=== PATIENT | male | born 1990 | race Caucasian/White ===

== ENCOUNTER 2016-12-05 08:35 | Day surgery (SDC) | payer BC ==
[~2016-12-05 08:35] MED LIST: Lactated Ringers 1,000 ML IV SCH; Lidocaine 2% 5 ML SDV ONE; Midazolam 1 MG/ML 2 ML SDV ONE; Propofol 200 MG/20 ML SDV ONE; fentaNYL 100 MCG/2 ML SDV ONE
--- NOTE | 2016-12-05 09:09 | PCM.PREANE ---
Preanesthetic Assessment - Anesthesia/Transfusion/Family Hx Anesthesia History: Prior Anesthesia Without Reaction Family History of Anesthesia Reaction: No Transfusion History: No Prior Transfusion(s) Intubation History: Unknown - Review of Systems General: No Symptoms Pulmonary: No Symptoms Cardiovascular: No Symptoms Gastrointestinal: Abdominal Pain Neurological: No Symptoms Other: Reports: None - Physical Assessment Height: 1.8 m Weight: 71.668 kg ASA Class: 2 Mental Status: Alert & Oriented x3 Airway Class: Mallampati = 2 Dentition: Reports: Normal Dentition Thyro-Mental Finger Breadths: 3 Mouth Opening Finger Breadths: 3 ROM/Head Extension: Full Lungs: Clear to Auscultation, Normal Respiratory Effort Cardiovascular: Regular Rate, Regular Rhythm - Allergies Allergies/Adverse Reactions: Allergies Allergy/AdvReac Type Severity Reaction Status Date / Time codeine Allergy Cannot Verified 11/03/14 03:51 Remember bee stings Allergy Anaphylactic Uncoded 12/01/16 08:01 Shock - Blood Blood Available: No - Anesthesia Plan Pre-Op Medication Ordered: None - Acknowledgements Anesthesia Type Planned: MAC Pt an Appropriate Candidate for the Planned Anesthesia: Yes Alternatives and Risks of Anesthesia Discussed w Pt/Guardian: Yes Pt/Guardian Understands and Agrees with Anesthesia Plan: Yes PreAnesthesia Questionnaire - Past Health History Medical/Surgical History: Denies Medical/Surgical History HEENT History: Reports: Other (See Below) Other HEENT History: wears contacts Gastrointestinal History: Reports: GERD Musculoskeletal History: Reports: Fracture Other Musculoskeletal History: hx fx shoulder - Past Surgical History Head Surgeries/Procedures: Reports: None GI Surgical History: Reports: Appendectomy - SUBSTANCE USE Smoking Status *Q: Current Every Day Smoker (1-2 ppd) Tobacco Use Within Last Twelve Months: Cigarettes Days Per Week of Alcohol Use: 2 Number of Drinks Per Day: 3 Total Drinks Per Week: 6 Recreational Drug Use History: No - HOME MEDS Home Medications: Home Meds EPINEPHrine [Epipen] 1 injection SUBCUT ASDIRECTED 12/01/16 [History] Ranitidine HCl 150 mg PO BID 12/01/16 [History] - CURRENT (IN HOUSE) MEDS Current Meds: Current Medications Lactated Ringer's (Ringers, Lactated) 1,000 mls @ 125 mls/hr IV ASDIRECTED THA Last Admin: 12/05/16 09:06 Dose: 125 mls/hr Discontinued Medications Fentanyl (Sublimaze) Confirm Administered Dose 100 mcg .ROUTE .STK-MED ONE Stop: 12/05/16 07:34 Lidocaine (Xylocaine-Mpf 2%) Confirm Administered Dose 5 ml .ROUTE .STK-MED ONE Stop: 12/05/16 07:33 Midazolam HCl (Versed 1 Mg/Ml) Confirm Administered Dose 2 mg .ROUTE .STK-MED ONE Stop: 12/05/16 07:33 Propofol (Diprivan 20 Ml) Confirm Administered Dose 400 mg .ROUTE .STK-MED ONE Stop: 12/05/16 07:33
--- NOTE | 2016-12-05 10:11 | PCM.OPNOTE ---
- General Post-Op/Procedure Note Date of Surgery/Procedure: 12/05/16 Operative Procedure(s): egd w bx Findings: see dict [id number] Pre Op Diagnosis: gerd Post-Op Diagnosis: Same Anesthesia Technique: Moderate Sedation Primary Surgeon: Ned Manning Pathology: egd bx Complications: None Condition: Good
--- NOTE | 2016-12-05 11:29 | OR ---
SURGEON: Ned Manning MD DATE OF PROCEDURE: 12/05/2016 PREOPERATIVE DIAGNOSIS: Abdominal pain. POSTOPERATIVE DIAGNOSIS: Gastroesophageal reflux disease. PROCEDURE PERFORMED: Esophagogastroduodenoscopy with biopsy. DESCRIPTION OF PROCEDURE: EGD: The patient was taken to the endoscopy room, and with the FITNESS DIRECTOR, Diprivan was administered. A well-lubricated EGD scope was gently inserted through the oropharynx, down the esophagus, passing through the gastroesophageal junction, into the stomach. The mucosa was examined upon the passage. Any etiology will be noted. Once in the stomach, we continued to advance to the distal antrum, passed through the pylorus into the second portion of the duodenum. Again, the mucosa was examined for any abnormality and etiology. The scope was then retrieved back to the stomach and then retroflexed to look at the fundus of the stomach. If a biopsy was indicated, we will biopsy the antrum, body, and gastroesophageal junction. The air will be sucked out while the scope is retrieved to reduce the patient's discomfort. The patient tolerated the procedure well. There were no intraoperative complications. Dr. Manning was present through the whole procedure. Prior to surgery, a time-out had been called, the patient identified, procedure identified and antibiotic administered. FINDINGS: 1. The patient is easily sedated with FITNESS DIRECTOR and Diprivan. The patient is soundly snoring. 2. Oropharynx and proximal esophagus are free of disease and no inflammation, stricture, or ulceration. Distal esophagus at GE junction at 40 shows moderate to significant salmon color change, and flame-like inflammation consistent with GERD. Stomach rugae is normal in appearance. There is no blood, ulcer, bile, or food observed. Antrum was mildly inflamed. Duodenum was grossly normal. Scope retrieved back to the stomach and retroflexed to look at the fundus of stomach, there was no hiatal hernia. Biopsy was done at antrum, body, GE junction at 40, and sucked out the air while the scope pulling out. VJ / DEAN /[id number]
[2016-12-05 11:53] VITALS: BP 118/60
== END 2016-12-05 10:52 | disposition home or self-care (01) ==
LOC: MW.SDS 08:35
PROVIDERS: ATTEND Surgery
DX: K21.0 Gastro-esophageal reflux disease with esophagitis (principal); Z88.8 Allergy status to other drugs, medicaments and biological substances; Z91.030 Bee allergy status; Z79.899 Other long term (current) drug therapy; F17.210 Nicotine dependence, cigarettes, uncomplicated
CPT/HCPCS: 43239; J2250; J3010; J7120; 88305; 88312; J2704

== ENCOUNTER 2017-09-26 19:35 | Emergency (ER) | payer BC ==
[2017-09-26 20:00] VITALS: BP 133/86
[2017-09-26] MEDS ORDERED: Ketorolac 60 MG/2 ML SDV IM ONE (20:19)
--- NOTE | 2017-09-26 20:25 | EDM.PDOC ---
ED HPI GENERAL MEDICAL PROBLEM - General Chief Complaint: Upper Extremity Injury/Pain Stated Complaint: PAIN RT SHOULDER/LT KNEE Time Seen by Provider: 09/26/17 19:41 Source of Information: Reports: Patient History Limitations: Reports: No Limitations - History of Present Illness INITIAL COMMENTS - FREE TEXT/NARRATIVE: HISTORY AND PHYSICAL: History of present illness: Patient is a 27-year-old male who presents to the emergency room today with complaints of left knee pain and right shoulder pain. Earring a softball game he was running and slid into a base, felt like he hyperextended his left knee which resulted in him falling and rolling to the ground. Fall he hit his right shoulder and now has pain with range of motion. Denies any numbness, tingling or lack of sensation to his distal extremities. No previous injury or trauma of the affected extremities. Review of systems: As per history of present illness and below otherwise all systems reviewed and negative. Past medical history: As per history of present illness and as reviewed below otherwise noncontributory. Surgical history: As per history of present illness and as reviewed below otherwise noncontributory. Social history: No reported history of drug or alcohol abuse. Family history: As per history of present illness and as reviewed below otherwise noncontributory. Physical exam: General: Developed and well-nourished 27 her old male. Alert and oriented. Nontoxic appearing and in no acute distress. HEENT: Atraumatic, normocephalic, pupils equal and reactive bilaterally, negative for conjunctival pallor or scleral icterus, mucous membranes moist, throat clear, neck supple, nontender, trachea midline. No drooling or trismus noted. No meningeal signs Lungs: Clear to auscultation, breath sounds equal bilaterally, chest nontender. Heart: S1S2, regular rate and rhythm without overt murmur Abdomen: Soft, nondistended, nontender. Negative for masses or hepatosplenomegaly. Negative for costovertebral tenderness. Pelvis: Stable nontender. Genitourinary: Deferred. Rectal: Deferred. Skin: Superficial abrasion noted to left lateral knee. Otherwise skin is intact , warm, dry. No lesions or rashes noted. Extremities: Pain with palpation to the posterior knee. No knee instability noted. Limited range of motion due to pain of the right shoulder. Distal right clavicle tenderness with palpation. He is negative for cords or calf pain. Neurovascular unremarkable. Neuro: Awake, alert, oriented. Cranial nerves II through XII unremarkable. Cerebellum unremarkable. Motor and sensory unremarkable throughout. Exam nonfocal. Notes: X-ray shows a distal right clavicular fracture. The knee x-ray shows no dislocation or fracture. We'll place in a sling. We discussed the limitations of x-ray imaging of the left lower extremity. Encouraged him to follow-up with or so well in the next couple days. He voices understanding and is agreeable to plan of care. He denies any further questions at this time Diagnostics: Xray left knee, right shoulder Therapeutics: Toradol, Sling Impression: Left knee injury Right distal clavicular fracture Plan: 1. Rest, ice, elevate the affected extremities. 2. Please use the sling. Tylenol and/or ibuprofen as needed for pain management. Tramadol has been prescribed for moderate to severe pain. This medication may cause drowsiness so do not take it will driving or needing to be functioning outside of the house. 3. Please follow-up with the orthopedic provider as we discussed. Definitive disposition and diagnosis as appropriate pending reevaluation and review of above. Onset: Today Duration: Minutes: Location: Reports: Upper Extremity, Right, Lower Extremity, Left right shoulder/left knee Pain Score (Numeric/FACES): 7 - Related Data Allergies Allergy/AdvReac Type Severity Reaction Status Date / Time codeine Allergy Cannot Verified 11/03/14 03:51 Remember bee stings Allergy Anaphylactic Uncoded 12/01/16 08:01 Shock Home Meds: Home Meds EPINEPHrine [Epipen] 1 injection SUBCUT ASDIRECTED 12/01/16 [History] Ranitidine HCl 150 mg PO BID 12/01/16 [History] Past Medical History - Past Health History Medical/Surgical History: Denies Medical/Surgical History HEENT History: Reports: Other (See Below) Other HEENT History: wears contacts Gastrointestinal History: Reports: GERD Genitourinary History: Reports: None Musculoskeletal History: Reports: Fracture Other Musculoskeletal History: hx fx shoulder Neurological History: Reports: None Psychiatric History: Reports: None Endocrine/Metabolic History: Reports: None Hematologic History: Reports: None Oncologic (Cancer) History: Reports: None Dermatologic History: Reports: None - Infectious Disease History Infectious Disease History: Reports: None - Past Surgical History Head Surgeries/Procedures: Reports: None GI Surgical History: Reports: Appendectomy Male Surgical History: Reports: None Social & Family History - Family History Family Medical History: Noncontributory - Tobacco Use Smoking Status *Q: Current Every Day Smoker Years of Tobacco use: 9 Packs/Tins Daily: 1 - Caffeine Use Caffeine Use: Reports: Coffee, Soda - Recreational Drug Use Recreational Drug Use: No Review of Systems - Review of Systems Review Of Systems: ROS reveals no pertinent complaints other than HPI. ED EXAM, GENERAL - Physical Exam Exam: See Below (See dictation) Course - Vital Signs Last Recorded V/S: Last Vital Signs Temp 98.4 F 09/26/17 19:58 Pulse 118 H 09/26/17 19:58 Resp 20 09/26/17 19:58 BP 133/86 09/26/17 19:58 Pulse Ox 97 09/26/17 19:58 - Orders/Labs/Meds Orders: Active Orders 24 hr Category Date Time Status Knee 3V Lt [CR] Stat Exams 09/26/17 20:15 Taken Shoulder Comp Rt [CR] Stat Exams 09/26/17 20:15 Taken DME for Discharge [COMM] Stat Oth 09/26/17 20:59 Ordered Meds: Medications Discontinued Medications Generic Name Dose Route Start Last Admin Trade Name Freq PRN Reason Stop Dose Admin Ketorolac Tromethamine 60 mg 09/26/17 20:19 Toradol IM 09/26/17 20:20 ONETIME ONE Departure - Departure Time of Disposition: 21:02 Disposition: Home, Self-Care 01 Clinical Impression: Fracture, clavicle Qualifiers: Encounter type: initial encounter Clavicle location: lateral end Fracture type : closed Fracture alignment: nondisplaced Laterality: right Qualified Code(s): S42.034A - Nondisplaced fracture of lateral end of right clavicle, initial encounter for closed fracture Knee injury Qualifiers: Encounter type: initial encounter Laterality: left Qualified Code(s): S89.92XA - Unspecified injury of left lower leg, initial encounter - Discharge Information Referrals: Leobardo Thomson MD [Primary Care Provider] - Forms: ED Department Discharge Additional Instructions: The following information is given to patients seen in the emergency department who are being discharged to home. This information is to outline your options for follow-up care. We provide all patients seen in our emergency department with a follow-up referral. The need for follow-up, as well as the timing and circumstances, are variable depending upon the specifics of your emergency department visit. If you don't have a primary care physician on staff, we will provide you with a referral. We always advise you to contact your personal physician following an emergency department visit to inform them of the circumstance of the visit and for follow-up with them and/or the need for any referrals to a consulting specialist. The emergency department will also refer you to a specialist when appropriate. This referral assures that you have the opportunity for follow-up care with a specialist. All of these measure are taken in an effort to provide you with optimal care, which includes your follow-up. Under all circumstances we always encourage you to contact your private physician who remains a resource for coordinating your care. When calling for follow-up care, please make the office aware that this follow-up is from your recent emergency room visit. If for any reason you are refused follow-up, please contact the [facility] Emergency Department at and asked to speak to the emergency department charge nurse. [facility] [address] [place] [id number] [facility] - [facility] Professional [address], [address] [place] [address] 1. Rest, ice, elevate the affected extremities. 2. Please use the sling. Tylenol and/or ibuprofen as needed for pain management. Tramadol has been prescribed for moderate to severe pain. This medication may cause drowsiness so do not take it will driving or needing to be functioning outside of the house. 3. Please follow-up with the orthopedic provider as we discussed. - My Orders Last 24 Hours: My Active Orders 09/26/17 20:15 Knee 3V Lt [CR] Stat Shoulder Comp Rt [CR] Stat 09/26/17 20:59 DME for Discharge [COMM] Stat - Assessment/Plan Last 24 Hours: My Active Orders 09/26/17 20:15 Knee 3V Lt [CR] Stat Shoulder Comp Rt [CR] Stat 09/26/17 20:59 DME for Discharge [COMM] Stat
--- NOTE | 2017-09-27 11:28 | CR ---
EXAM DATE: 09/26/17 PATIENT'S AGE: 27 Patient: BILL MAURICE Facility: [place], [place] Site . Site : 1990 Study: XRay Knee Left [id number]/23/2018 8:44:32 PM Ordering Physician: Doctor Gee Final Report: INDICATION: Left Knee Pain TECHNIQUE: Left knee 2 views. COMPARISON: None. FINDINGS: Bones: Alignment is normal. No fractures or bone lesions. Joint spaces: Unremarkable. Soft tissues: Unremarkable. IMPRESSION: Unremarkable left knee. Dictated by: Josep Zamorano MD @ 09/26/2017 20:48:18 (Electronic Signature) Report Signed by Proxy. ANURAG
--- NOTE | 2017-09-27 12:39 | CR ---
EXAM DATE: 09/26/17 PATIENT'S AGE: 27 Patient: BILL MAURICE Facility: [place], [place] Site . Site : 1990 Study: XRay Shoulder Right [id number]/23/2018 8:44:55 PM Ordering Physician: Doctor Gee Final Report: INDICATION: Shoulder pain TECHNIQUE: Two views right shoulder COMPARISON: None FINDINGS: Bones: Distal right clavicle fracture. Joint spaces: Unremarkable. Soft tissues: Unremarkable. IMPRESSION: Distal right clavicle fracture. Dictated by Josep Zamorano MD @ 09/26/2017 8:50:37 PM Dictated by: Josep Zamorano MD @ 09/26/2017 20:50:40 (Electronic Signature) Report Signed by Proxy. ANURAG
== END 2017-09-26 21:55 | disposition home or self-care (01) ==
LOC: MW.ED 19:35
DX: S42.034A Nondisplaced fracture of lateral end of right clavicle, initial encounter for closed fracture (principal); S89.92XA Unspecified injury of left lower leg, initial encounter; F17.210 Nicotine dependence, cigarettes, uncomplicated; Z88.5 Allergy status to narcotic agent; Z91.030 Bee allergy status; S80.212A Abrasion, left knee, initial encounter; W19.XXXA Unspecified fall, initial encounter; Y93.64 Activity, baseball
CPT/HCPCS: 73030; 73562; 96372; 99283; J1885

== ENCOUNTER 2021-05-26 18:25 | Emergency (ER) | payer BC ==
[2021-05-26] MEDS ORDERED: Ondansetron 4 MG/2 ML SDV IVPUSH ONE (19:29)
[2021-05-26] MEDS ORDERED: Sodium Chloride 0.9% 1,000 ML IV ONE (19:29)
[2021-05-26] MEDS ORDERED: Sodium Chloride 0.9% 1,000 ML IV STA (20:26)
[2021-05-26 20:44] LABS: BLOOD UREA NITROGEN,BUN 8 mg/dL (7.0-18.0); CARBON DIOXIDE,CO2 29.2 mmol/L (21.0-32.0); CHLORIDE,CL 106 mmol/L (98-107); GLUCOSE RANDOM 106 mg/dL (74-106); LIPASE 67 U/L (73-393); SODIUM,NA 143 mmol/L (136-148)
[2021-05-26 22:53] VITALS: BP 131/82; PULSE 109
== END 2021-05-27 01:22 | disposition home or self-care (01) ==
LOC: MW.ED 18:25
DX: R11.10 Vomiting, unspecified (principal); E86.0 Dehydration; K21.9 Gastro-esophageal reflux disease without esophagitis; Z88.5 Allergy status to narcotic agent; Z91.030 Bee allergy status; Z79.899 Other long term (current) drug therapy; Z72.0 Tobacco use
CPT/HCPCS: 36415; 80053; 81003; 83690; 85025; 96374; 99284; J2405; J7030; J7040